=== PATIENT | female | born 1985 | race Caucasian/White ===

== ENCOUNTER 2018-03-31 11:09 | Day surgery (SDC) | payer OTHER ==
[~2018-03-31 11:09] MED LIST: LIDOCAINE 2% (SDV) 5 ML INJ
[2018-03-31] MEDS ORDERED: PROPOFOL 20 ML (13:05)
[2018-03-31] MEDS ORDERED: FENTAnyl 50 MCG/ML VIAL (13:05)
== END 2018-03-31 14:09 | disposition home or self-care (01) ==
LOC: GIL 11:09
DX: K44.9 Diaphragmatic hernia without obstruction or gangrene (principal); K21.0 Gastro-esophageal reflux disease with esophagitis
CPT/HCPCS: 43239; 84703; 88305; 88312